=== PATIENT | female | born 1980 | race Caucasian/White ===

== ENCOUNTER 2018-06-09 10:53 | Emergency (ER) | payer OTHER ==
[~2018-06-09] VITALS: Ht 175.3 cm; Wt 74.8 kg
--- NOTE | 2018-06-09 10:55 | NUR ---
BIB SELF W C/O WORSENING L BACK PAIN x 2 DAYS, TO ER BED 9, CHANGED TO ED[facility] ANGELO, AWAITING MD ROWLAND
--- NOTE | 2018-06-09 11:08 | NUR ---
HOME SERVICE DIRECTOR DEGRASSE AT BEDSIDE
[2018-06-09] MEDS ORDERED: KETOROLAC TROMETHAMINE INJ 30 MG/ML VIAL ONE (11:17)
[2018-06-09] MEDS ORDERED: MORPHINE SULFATE INJ 4 MG/ML DISP.SYRIN ONE (11:17)
[2018-06-09] MEDS ORDERED: ONDANSETRON 4 MG TAB.RAPDIS ONE (11:18)
[2018-06-09] MEDS ORDERED: ONDANSETRON 4 MG TAB.RAPDIS SL ONE (11:30)
[2018-06-09] MEDS ORDERED: KETOROLAC TROMETHAMINE INJ 60 MG/2 ML VIAL IM ONE (11:30)
[2018-06-09] MEDS ORDERED: MORPHINE SULFATE INJ 2 MG/ML DISP.SYRIN IM ONE (11:30)
--- NOTE | 2018-06-09 11:30 | NUR ---
SIGNED WAIVER FOR TEST, LMP=04/14/18
[2018-06-09] MEDS ORDERED: DIAZEPAM 10 MG TABLET ONE (11:52)
[2018-06-09] MEDS ORDERED: DIAZEPAM 10 MG TABLET PO ONE (12:00)
[2018-06-09] MEDS ORDERED: DIAZEPAM 5 MG/ML 2 ML DISP.SYRIN IM ONE (12:00)
[2018-06-09 12:33] VITALS: BP 138/92
--- NOTE | 2018-06-09 12:33 | NUR ---
Patient discharged to home in stable condition. Written and verbal after care instructions given. Patient verbalizes understanding of instruction.
== END 2018-06-09 12:34 | disposition home or self-care (01) ==
LOC: ER 11:02
DX: S29.012A Strain of muscle and tendon of back wall of thorax, initial encounter (principal); F17.210 Nicotine dependence, cigarettes, uncomplicated; Z90.89 Acquired absence of other organs; Z98.890 Other specified postprocedural states; Z88.8 Allergy status to other drugs, medicaments and biological substances; X58.XXXA Exposure to other specified factors, initial encounter; Y93.89 Activity, other specified; Y92.89 Other specified places as the place of occurrence of the external cause; Y99.8 Other external cause status
CPT/HCPCS: 96372; 99283; 99406; A4606; J1885; Q0162; Z7610; J2270